=== PATIENT | male | born 1990 | race Two or more races ===

== ENCOUNTER 2018-05-13 14:20 | Outpatient (CLI) | payer SELFPAY ==
--- NOTE | 2018-05-13 16:56 | XRAY Report ---
Reason: ANKLE JOINT PAIN, RIGHT Procedure Date: 05/13/2018 Accession Number: [id number] / [id number] Procedure: XRS - Ankle 3 View RT CPT Code: FULL RESULT: EXAM: RIGHT ANKLE RADIOGRAPHY EXAM DATE: 05/13/2018 02:38 PM. CLINICAL HISTORY: ANKLE JOINT PAIN, RIGHT. COMPARISON: None. TECHNIQUE: 3 views. FINDINGS: Bones: No fractures or bone lesions. Joints: No effusion. No subluxations. The ankle mortise is normally aligned. Soft Tissues: No soft tissue swelling. IMPRESSION: Negative ankle radiography. RADIA
== END 2018-05-13 14:21 | disposition home or self-care (01) ==
LOC: DI.S 14:20
PROVIDERS: ATTEND Nurse Practitioner Family
DX: M25.571 Pain in right ankle and joints of right foot (principal)

== ENCOUNTER 2021-07-04 08:00 | Outpatient (CLI) | payer SELFPAY | END 2021-07-04 23:59 | disposition home or self-care (01) | LOC: LAB.S 08:00 | PROVIDERS: ATTEND Physician Assistant Medical | DX: K12.1 Other forms of stomatitis (principal); R50.9 Fever, unspecified; Z20.822 Contact with and (suspected) exposure to COVID-19 | CPT/HCPCS: 81599; 87255 ==

== ENCOUNTER 2022-03-28 17:57 | Emergency (ER) | payer OTHER ==
--- NOTE | 2022-03-28 18:01 | ED Physician Documentation ---
PD HPI WOUND RECHECK - Stated complaint Stated Complaint: REMOVE LEN - Histroy obtained from History obtained from: Patient - History of Present Illness Location: Scalp Timing - onset: How many days ago (17) Similar symptoms before: Diagnosis (had scalp laceration and was seen in ER with len placed. He has been cleaning it and ointment eithout problems. Here for staple removed - had been told 2 weeks.) Recently seen: Emergency Dept Review of Systems Cardiac: denies: Chest pain / pressure GI: denies: Abdominal Pain Musculoskeletal: denies: Neck pain, Back pain Neurologic: denies: Generalized weakness, Altered mental status, Headache PD PAST MEDICAL HISTORY - Past Medical History Past Medical History: No - Present Medications Home Medications: Ambulatory Orders Medication Instructions Recorded Confirmed Bacitracin Zinc Oint 28.4 gm TOP BID #28.4 ml 03/10/22 HYDROcod/ACETAM 5/325 [[place] 5/325] 1 - 2 ea PO Q6H PRN #14 tablet 03/10/22 - Allergies Allergies/Adverse Reactions: Allergies Allergy/AdvReac Type Severity Reaction Status Date / Time No Known Drug Allergies Allergy Verified 03/28/22 17:59 PD ED PE NORMAL - Vitals Vital signs reviewed: Yes - General General: Alert and oriented X 3, No acute distress, Well developed/nourished - HEENT HEENT: PERRL, EOMI, Other (anterior vertex scalp with healing wound and no discharge, redness, tender. Pauline in place. Removed easily without problems. ) Results - Vitals Vitals: Vital Signs - 24 hr 03/28/22 18:00 Temperature 36.5 C Heart Rate 74 Respiratory 16 Rate Blood Pressure 130/60 O2 Saturation 98 Oxygen O2 Source Room air PD MEDICAL DECISION MAKING - ED course Complexity details: reviewed old records, considered differential, d/w patient Departure - Departure Disposition: 01 Home, Self Care Clinical Impression: Encounter for staple removal Condition: Stable Record reviewed to determine appropriate education?: Yes Instructions: ED Stap Removal No Complication Comments: Continue wound with washing and cleaning and some ointment till the wound is fully healed. It does appear healed enough at this point to remove the len. The wound looks good. Discharge Date/Time: 03/28/22 18:23
[2022-03-28 18:02] VITALS: BP 130/60
== END 2022-03-28 18:23 | disposition home or self-care (01) ==
LOC: ED 17:57
DX: S01.01XD Laceration without foreign body of scalp, subsequent encounter (principal); X58.XXXD Exposure to other specified factors, subsequent encounter
CPT/HCPCS: 99281

== ENCOUNTER 2022-05-03 08:00 | Outpatient (CLI) | payer SELFPAY ==
--- NOTE | 2022-05-03 14:08 | XRAY Report ---
PROCEDURE: Shoulder 3 View RT INDICATIONS: ACROMIOCLAVICULAR JOINT PAIN, RIGHT TECHNIQUE: 3 views of the shoulder were acquired. COMPARISON: None. FINDINGS: Bones: No fractures or dislocations. No suspicious bony lesions. Visualized ribs appear intact. Mi ld AC joint hypertrophy present. No widening of the AC joint visualized. Soft tissues: No suspicious soft tissue calcifications. IMPRESSION: No acute osseous abnormality. If symptoms persist, follow-up radiographs and/or CT or MR I may be helpful for further evaluation. Reviewed by: Claudio Marcelo MD on 05/03/2022 2:07 PM PDT Approved by: Claudio Marcelo MD on 05/03/2022 2:07 PM PDT Station ID: [id number]
== END 2022-05-03 08:01 | disposition home or self-care (01) ==
LOC: DI.S 08:00
PROVIDERS: ATTEND Physician Assistant
DX: M25.511 Pain in right shoulder (principal)

== ENCOUNTER 2022-09-23 08:00 | Outpatient (CLI) | payer BC ==
--- NOTE | 2022-09-23 16:25 | XRAY Report ---
PROCEDURE: Chest 2 View X-Ray INDICATIONS: PRODUCTIVE COUGH, YELLOW SPUTUM TECHNIQUE: 2 views of the chest were acquired. COMPARISON: None. FINDINGS: Surgical changes and devices: None. Lungs and pleura: No pleural effusions or pneumothorax. Lungs are clear. Mediastinum: Mediastinal contours are normal. Heart size is normal. Bones and chest wall: No suspicious bony abnormalities. Soft tissues appear unremarkable. IMPRESSION: No acute cardiopulmonary process. Reviewed by: Pool Diaz on 09/23/2022 4:24 PM PDT Approved by: Pool Diaz on 09/23/2022 4:24 PM PDT Station ID: [id number]
== END 2022-09-23 23:59 | disposition home or self-care (01) ==
LOC: DI.S 08:00
PROVIDERS: ATTEND Physician Assistant Medical
DX: R09.3 Abnormal sputum (principal); R05.8 Other specified cough